=== PATIENT | male | born 2000 | race Caucasian/White ===

== ENCOUNTER 2022-02-26 03:05 | Emergency (ER) | payer SELFPAY ==
[~2022-02-26] VITALS: Ht 175.3 cm; Wt 66.2 kg
[2022-02-26 03:09] VITALS: BP 136/46
--- NOTE | 2022-02-26 03:09 | NUR ---
PT JENNIFER GARCIA, TAKEN TO CHAIR
[2022-02-26] MEDS ORDERED: ACETAMINOPHEN 325 MG TAB PO ONE (03:10)
[2022-02-26 03:32] VITALS: BP 136/46
--- NOTE | 2022-02-26 03:32 | NUR ---
Note ruby in EDM - 02/26/22 at 0422 by [id number] Patient discharged with v/s stable. Written and verbal after care instructions given and explained. Patient verbalized understanding. Police with in custody. All questions addressed prior to discharge. Advised to follow up with PMD.
== END 2022-02-26 03:32 ==
LOC: MED 03:05
DX: R07.89 Other chest pain (principal)
CPT/HCPCS: 71045; 99283